=== PATIENT | male | born 1980 | race Asian ===

== ENCOUNTER 2019-08-25 06:46 | Day surgery (SDC) | payer BC ==
[2019-08-25] VITALS (9 sets, daily range): BP systolic 116–133; BP diastolic 77–90
[~2019-08-25] VITALS: Ht 175.3 cm; Wt 83.9 kg
[~2019-08-25 06:46] MED LIST: Lidocaine 1% Plain 30 ml INJ ONE
[2019-08-25] MEDS ORDERED: AMLODIPINE BES2.5 MG ORAL (07:08)
[2019-08-25] MEDS ORDERED: LR 1000ml 1,000 ML IVLG SCH (07:48)
--- NOTE | 2019-08-25 07:58 | Anethesia Preoperative Eval ---
Anesthesia Pre-op PMH/ROS General Date of Evaluation: Aug 25, 2019 Time of Evaluation: 08:18 Anesthesiologist: Ambika ASA Score: ASA 2 Mallampati Score Class I : Soft palate, uvula, fauces, pillars visible Class II: Soft palate, uvula, fauces visible Class III: Soft palate, base of uvula visible Class IV: Only hard plate visible Mallampati Classification: Class II Surgeon: Lauren Diagnosis: Abd Pain Surgical Procedure: Colonoscopy Anesthesia History: none Family History: no anesthesia problems Allergies: Coded Allergies: Dairy (Verified Adverse Reaction, Intermediate, "stomach problem", 08/25/19 ) SHELLFISH DERIVED (Verified Adverse Reaction, Intermediate, "stomach problem", 08/25/19) Medications: see eMAR Patient NPO?: Yes Past Medical History Cardiovascular: Reports: HTN Pulmonary: Reports: other - Sinusitis Gastrointestinal/Genitourinary: Reports: GERD Neurologic/Psychiatric: Reports: other - Tinnitus Musculoskeletal/Integumentary: Reports: DDD, other - Back Pain Anesthesia Pre-op Phys. Exam Physician Exam Last Vital Signs Date Time Temp Pulse Resp B/P (MAP) Pulse Ox O2 Delivery O2 Flow Rate FiO2 08/25/19 07:18 Room Air 08/25/19 07:09 97.0 78 18 127/90 98 Constitutional: NAD Neurologic: CN 2-12 intact Cardiovascular: RRR Respiratory: CTA Gastrointestinal: S/NT/ND Airway Exam Mallampati Score: Class II MO: full ROM: full Teeth: intact Anesthesia Pre-op A/P Risk Assessment & Plan Assessment: ASA 2 Plan: TIVA Status Change Before Surgery: No Alphonso Apple MD Aug 25, 2019 07:58
[2019-08-25] MEDS ORDERED: Labetalol 5mg/ml 20ml vial IV PRN (08:00)
[2019-08-25] MEDS ORDERED: Atropine Sulfate 0.4mg/ml inj IVP PRN (08:00)
[2019-08-25] MEDS ORDERED: Meperidine 25mg/0.5ml Inj (FOR RIGORS ONLY) IV PRN (08:00)
[2019-08-25] MEDS ORDERED: oxyCODONE HCL/Acetaminophen 5/325mg ORAL PRN (08:00)
[2019-08-25] MEDS ORDERED: DiphenhydrAMINE 50mg/ml Inj IVP PRN (08:00)
[2019-08-25] MEDS ORDERED: Hydromorphone 0.5mg/0.5ml inj IVP PRN (08:00)
[2019-08-25] MEDS ORDERED: LR 1000ml ONE (08:00)
[2019-08-25] MEDS ORDERED: Ketorolac 30mg Inj IV PRN ×2 (08:00)
[2019-08-25] MEDS ORDERED: HYDROcodone/Acetamin 7.5/325 tab ORAL PRN (08:00)
[2019-08-25] MEDS ORDERED: HYDROcodone/Acetamin 5/325 tab ORAL PRN (08:00)
[2019-08-25] MEDS ORDERED: fentaNYL 100 mcg/2 mL IV PRN (08:00)
[2019-08-25] MEDS ORDERED: LORazepam Inj 2mg/ml 1ml IV PRN (08:00)
[2019-08-25] MEDS ORDERED: Propofol 200mg/20ml IV ONE (08:00)
[2019-08-25] MEDS ORDERED: Midazolam 2mg/2ml Inj IVP PRN (08:00)
[2019-08-25] MEDS ORDERED: Metoclopramide 10mg/2ml Inj IVP PRN (08:00)
--- NOTE | 2019-08-25 08:27 | Pre-Procedure Note/Attestation ---
Pre-Procedure Note/Attestation Complete Prior to Procedure Planned Procedure: not applicable Procedure Narrative: colonoscopy Indications for Procedure Pre-Operative Diagnosis: colonoscopy for diarrhea Attestation I attest that I discussed the nature of the procedure; its benefits; risks and complications; and alternatives (and the risks and benefits of such alternatives ), prior to the procedure, with the patient (or the patient's legal patient care representative). I attest that, if there was a reasonable possibility of needing a blood transfusion, the patient (or the patient's legal patient care representative) was given the [facility] standardized written summary, pursuant to the Eric Santhosh Blood Safety Act ([place] Health and Safety Code # 1645, as amended). I attest that I re-evaluated the patient just prior to the surgery and that there has been no change in the patient's H&P, except as documented below: Manny Aguilar MD Aug 25, 2019 08:27
--- NOTE | 2019-08-25 08:27 | Short Stay Surgery H&P ---
History of Present Illness History of Present Illness Chief Complaint see typed H&P HPI Skip Ngo is a 39 year old male who was admitted on for Diarrhea Patient History Allergies: Coded Allergies: Dairy (Verified Adverse Reaction, Intermediate, "stomach problem", 08/25/19 ) SHELLFISH DERIVED (Verified Adverse Reaction, Intermediate, "stomach problem", 08/25/19) Medication History Scheduled Amlodipine Besylate* (Amlodipine Besylate*), 2.5 MG ORAL DAILY, (Reported) Physical Exam Vital Signs Last Vital Signs Date Time Temp Pulse Resp B/P (MAP) Pulse Ox O2 Delivery O2 Flow Rate FiO2 08/25/19 07:18 Room Air 08/25/19 07:09 97.0 78 18 127/90 98 Plan Attestation Are the patient's medical conditions optimized for surgery? Manny Aguilar MD Aug 25, 2019 08:27
--- NOTE | 2019-08-25 08:43 | Immediate Post-Op Evaluation ---
Immediate Post-Op Evalulation Immediate Post-Op Evalulation Procedure: Colonoscopy Date of Evaluation: Aug 25, 2019 Time of Evaluation: 09:08 IV Fluids: 800 LR Blood Products: 0 Estimated Blood Loss: 2 Urinary Output: 0 Blood Pressure Systolic: 118 Blood Pressure Diastolic: 78 Pulse Rate: 73 Respiratory Rate: 16 O2 Sat by Pulse Oximetry: 100 Temperature (Fahrenheit): 97.3 Pain Score (1-10): 1 Nausea: No Vomiting: No Complications 0 Patient Status: awake, reacts, patent, none Hydration Status: adequate Alphonso Apple MD Aug 25, 2019 08:43
--- NOTE | 2019-08-25 08:44 | 48 Hour Post Anesthesia Eval ---
Post Anesthesia Evaluation Procedure: Colonoscopy Date of Evaluation: Aug 25, 2019 Time of Evaluation: 11:13 Blood Pressure Systolic: 123 0: 84 Pulse Rate: 75 Respiratory Rate: 18 Temperature (Fahrenheit): 98 O2 Sat by Pulse Oximetry: 100 Airway: patent Nausea: No Vomiting: No Pain Intensity: 1 Hydration Status: adequate Cardiopulmonary Status: Stable Mental Status/LOC: patient returned to baseline Follow-up Care/Observations: 0 Post-Anesthesia Complications: 0 Follow-up care needed: ready to discharge Alphonso Apple MD Aug 25, 2019 08:44
--- NOTE | 2019-08-25 10:30 | Operative Note - Dictated ---
DATE OF OPERATION: 08/25/2019 GASTROENTEROLOGY PROCEDURE REPORT PROCEDURE: Colonoscopy with biopsy. SURGEON: Manny Aguilar M.D. ANESTHESIA: Please see the separate anesthesiologist notes for details. PRE-ENDOSCOPIC DIAGNOSIS: Diarrhea. POST-ENDOSCOPIC DIAGNOSIS: Normal colonoscopy including ileum, status post random biopsies of the terminal ileum, right colon, left colon, and rectosigmoid colon. DESCRIPTION OF PROCEDURE: The procedure, its risks, indications, alternatives, and possible complications were explained and informed consent was obtained. The rectal exam was done. The colonoscope was introduced into the rectum and advanced to the terminal ileum. The colonoscope was then gradually withdrawn and mucosa examined carefully. Examination was concluded with the retroflex view of the rectum. The patient was sent to recovery in good condition. COMPLICATIONS: None. ASSESSMENT: There were no abnormalities on this examination to explain the patient's symptoms. Biopsies will be evaluated to rule out microscopic evidence of disease. RECOMMENDATIONS: 1. Follow up biopsy results. 2. Outpatient followup. Manny Aguilar M.D. DR: TERRY JOB#: [id number] CC:
--- NOTE | 2019-08-25 21:20 | Endoscopy Procedure Note ---
Endoscopy Procedure Note General Indication for Procedure: intract diarrhea Procedures Performed: colonoscopy Operative Findings/Diagnosis: normal Specimen: yes Pt Tolerated Procedure Well: Yes Estimated Blood Loss: none Anesthesia Anesthesiologist: see report Anesthesia: MAC Inserted Devices Implant(s) used?: No GI Core Measures 50 yrs or older w/o bx or poly: Not Applicable 10yrs. F/U recommended: Not Applicable If not recommended, why?: Manny Aguilar MD Aug 25, 2019 21:20
--- NOTE | 2019-08-25 21:22 | Brief Operative Note ---
Immediate Post Operative Note Operative Note Chief Complaint: diarrhea Pre-op Diagnosis: colonoscopy for diarrhea Post-op Diagnosis: normal Surgeon: chaitanya Specimen: yes Complications: none Fluids: recorded Implant(s) used?: No Manny Aguilar MD Aug 25, 2019 21:22
== END 2019-08-25 10:15 | disposition home or self-care (01) ==
LOC: GAS 06:46
DX: R19.7 Diarrhea, unspecified (principal); I10 Essential (primary) hypertension; K21.9 Gastro-esophageal reflux disease without esophagitis; Z91.011 Allergy to milk products; Z91.013 Allergy to seafood; K52.9 Noninfective gastroenteritis and colitis, unspecified
CPT/HCPCS: 45380; J2001; J2250; J2704; J7120; 94003; 94150